=== PATIENT | female | born 1935 | race Caucasian/White ===

== ENCOUNTER → 2022-05-30 12:50 | Outpatient (BNVA) | payer MEDICARE, BC, SELFPAY | PROVIDERS: PCP Nurse Practitioner Adult Health; Referring Provider Nurse Practitioner Adult Health; Visit Provider Nurse Practitioner Adult Health | DX: G43.009 Migraine without aura, not intractable, without status migrainosus (principal); F41.9 Anxiety disorder, unspecified | CPT/HCPCS: 99204 ==

== ENCOUNTER → 2022-07-11 10:41 | Outpatient (BNVA) | payer MEDICARE, BC, SELFPAY | PROVIDERS: PCP Nurse Practitioner Adult Health; Referring Provider Nurse Practitioner Adult Health; Visit Provider Nurse Practitioner Adult Health | DX: G43.009 Migraine without aura, not intractable, without status migrainosus (principal) | CPT/HCPCS: 99213; 99214 ==

== ENCOUNTER 2022-07-24 15:06 | Outpatient (REF) | payer MEDICARE, BC, SELFPAY | END 2022-07-24 15:07 | disposition home or self-care (01) | LOC: LBN 15:06 | PROVIDERS: PCP Nurse Practitioner Adult Health; Visit Provider Otolaryngology | DX: J32.0 Chronic maxillary sinusitis (principal) | CPT/HCPCS: 87070 ==